=== PATIENT | male | born 1945 | race Caucasian/White ===

== ENCOUNTER 2022-11-10 13:22 | Emergency (ER) | payer MEDICARE, BC ==
[2022-11-10] MEDS ORDERED: Iopamidol 755 MG/ML 50 ML Bottle IVPUSH ONE ×2 (13:38)
[2022-11-10 13:44] LABS: BASOPHILS ABSOLUTE AUTO 0.02 K/mm3 (0.01-0.08); BASOPHILS PERCENT AUTO 0.2 % (0.1-1.2); EOSINOPHILS ABSOLUTE AUTO 0.04 K/mm3 (0.04-0.54); EOSINOPHILS PERCENT AUTO 0.4 (0.8-7.0); HEMATOCRIT 36.7 % (40.1-51.0); HEMOGLOBIN 12.2 gm/dl (13.7-17.5); IMMATURE GRAN ABSOLUTE AUTO 0.04 K/mm3 (0.00-0.10); IMMATURE GRAN PERCENT AUTO 0.4 % (<=1.0); LYMPHOCYTES ABSOLUTE AUTO 1.04 K/mm3 (1.32-3.57); LYMPHOCYTES PERCENT AUTO 10.2 % (21.8-53.1); MEAN CORPUSCULAR HGB CONC 33.2 g/dl (32.2-35.5); MEAN CORPUSCULAR VOLUME 99.2 fl (79.0-92.2); MEAN PLATELET VOLUME 9.6 fl (9.4-12.3); MONOCYTES ABSOLUTE AUTO 0.61 K/mm3 (0.30-0.82); NEUTROPHILS ABSOLUTE AUTO 8.44 K/mm3 (1.78-5.38); NEUTROPHILS PERCENT AUTO 82.8 % (34.0-67.9); PLATELET COUNT,PLT 206 K/mm3 (163-337); WHITE BLOOD CELL COUNT,WBC 10.19 K/mm3 (4.23-9.07)
[2022-11-10 13:57] LABS: INR 1.04; PROTHROMBIN TIME 11.1 SECONDS (9.7-12.0)
[2022-11-10 13:59] LABS: PTT,PARTIAL THROMBOPLSTIN TIME 24.7 SECONDS (21.7-31.4)
[2022-11-10 14:08] LABS: A/G RATIO 1.1 (1-2); ALANINE AMINOTRANSFERASE,ALT 119 U/L (16-63); ALKALINE PHOSPHATASE 83 U/L (46-116); AMYLASE 64 U/L (25-115); ANION GAP 13.4 (5-15); ASPARTATE AMNIOTRANSFERASE,AST 124 U/L (15-37); BILIRUBIN TOTAL 0.4 mg/dL (0.2-1.0); BLOOD UREA NITROGEN,BUN 23 mg/dL (7-18); BUN/CREATININE RATIO 9.6 (14-18); CALCIUM 8.1 mg/dL (8.5-10.1); CARBON DIOXIDE,CO2 21 mEq/L (21-32); CHLORIDE,CL 111 mEq/L (98-107); CREATININE 2.4 mg/dL (0.7-1.3); ESTIMATED GFR 27 mL/min (>60); GLUCOSE RANDOM 167 mg/dL (70-99); POTASSIUM,K 4.4 mEq/L (3.5-5.1); PROTEIN TOTAL,TP 5.7 g/dl (6.4-8.2); SODIUM,NA 141 mEq/L (136-145)
[2022-11-10] MEDS ORDERED: fentaNYL 100 MCG/2 ML SDV ONE (14:21)
[2022-11-10] MEDS ORDERED: fentaNYL 100 MCG/2 ML SDV IVPUSH ONE ×2 (14:24→14:34)
[2022-11-10] MEDS ORDERED: Sodium Chloride 0.9% 1,000 ML IV SCH ×2 (14:45)
== END 2022-11-10 15:00 ==
LOC: JD.ED 13:22
DX: S27.321A Contusion of lung, unilateral, initial encounter (principal); S30.811A Abrasion of abdominal wall, initial encounter; V86.95XA Unspecified occupant of 3- or 4- wheeled all-terrain vehicle (ATV) injured in nontraffic accident, initial encounter
CPT/HCPCS: 36415; 36430; 70450; 71260; 72125; 74177; 80053; 82150; 83605; 85025; 85610; 85730; 86850; 86900; 86901; 86922; 93005; 96361; 96374; 99284; J3010; J7030; P9016; Q9967; 93010